=== PATIENT | female | born 1930 | race Caucasian/White ===

== ENCOUNTER → 2019-04-25 | Outpatient (CLI) | payer MEDICARE, OTHER ==
[~2019-04-25] MED LIST: ALBU90OI INH; ASCO500 PO; ASPI81CH PO; BIOTIN1 MG PO; CEFU500; CHOL10002 PO; CYAN100 PO; DIAZ5 PO; DICL25ER PO; Fluocinonide-E15 GM TP; GINKGO BILOBA120 MG; GLUCOSAMINE HCL; HYDR1TAB94 PO; IBUP600 PO; Inderal40 MG; LEVSOD50 PO; LEVSOD75 PO; LIDO5TP TOP; METCAR500 PO; MULTIVITAMIN WITH IR; NORT10 PO; Norco 5-325 Ta1 EACH PO; PRED10 PO; Robaxin500 MG PO; Sea-Omega 30 C1 EACH PO
== END ==
LOC: PLD 07:48 → LAB SHORT 07:48
DX: L57.0 Actinic keratosis (principal)
CPT/HCPCS: 88305

== ENCOUNTER → 2019-10-03 | Outpatient (CLI) | payer MEDICARE, OTHER ==
[2019-10-03 19:08] LABS: Influenza A Negative (NEGATIVE); Influenza B Negative (NEGATIVE)
== END ==
LOC: LAB SHORT 12:00 → LAB 12:00
PROVIDERS: Nurse Practitioner Family
DX: R50.9 Fever, unspecified (principal)
CPT/HCPCS: 87804

== ENCOUNTER 2019-11-27 12:53 | Emergency (ER) | payer MEDICARE, OTHER ==
[~2019-11-27] VITALS: Ht 167.6 cm; Wt 56.7 kg
[2019-11-27] MEDS ORDERED: MERIBIN5 M1 PO (13:02)
[2019-11-27] MEDS ORDERED: ASPIR 8181 MG PO (13:02)
[2019-11-27] MEDS ORDERED: ATOR20 PO (13:02)
[2019-11-27] MEDS ORDERED: LEVSOD75 PO (13:03)
[2019-11-27] MEDS ORDERED: LATA.005SO (13:03)
[2019-11-27] MEDS ORDERED: GLUC500 PO (13:03)
[2019-11-27] MEDS ORDERED: METF500 (13:04)
[2019-11-27] MEDS ORDERED: VIT1CAPS12 (13:04)
[2019-11-27] MEDS ORDERED: MIRALAX17 GM PO (13:04)
[2019-11-27] MEDS ORDERED: Inderal40 MG (13:04)
[2019-11-27] MEDS ORDERED: ACET325 (13:05)
[2019-11-27] MEDS ORDERED: ALBU90OI (13:05)
[2019-11-27] MEDS ORDERED: ONDA4ODT MM (15:14)
[2019-11-27] MEDS ORDERED: DIAZ2 PO (15:15)
== END 2019-11-27 16:00 | disposition home or self-care (01) ==
LOC: ER 12:53
DX: G45.9 Transient cerebral ischemic attack, unspecified (principal); Z51.5 Encounter for palliative care; Z66 Do not resuscitate; F32.9 Major depressive disorder, single episode, unspecified; R42 Dizziness and giddiness; Z88.5 Allergy status to narcotic agent; Z79.899 Other long term (current) drug therapy; Z79.82 Long term (current) use of aspirin; Z79.84 Long term (current) use of oral hypoglycemic drugs; I10 Essential (primary) hypertension; E03.9 Hypothyroidism, unspecified; G43.909 Migraine, unspecified, not intractable, without status migrainosus; Z87.891 Personal history of nicotine dependence
CPT/HCPCS: 93005; 93010; 96361; 96374; 96375; 99284-25; J2060; J2405; J7030

== ENCOUNTER → 2020-01-19 | Outpatient (CLI) | payer MEDICARE, OTHER ==
[~2020-01-19] MED LIST changes: +ACET325; +ALBU90OI; +ASPIR 8181 MG PO; +ATOR20 PO; +DIAZ2 PO; +GLUC500 PO; +LATA.005SO; +MERIBIN5 M1 PO; +METF500; +MIRALAX17 GM PO; +ONDA4ODT MM; +VIT1CAPS12
[2020-01-19 09:05] LABS: Hematocrit 41.5 % (33.0-51.0); Hemoglobin 13.7 g/dL (11.5-16.0); Mean Corpuscular HGB 30.8 pg (26.0-34.0); Mean Corpuscular Volume 93 fL (80-100); Mean Platelet Volume 10.7 fL (9.1-12.4); Platelet Count 249 K/mm3 (150-400); RDW Coefficient Variation 13.2 % (11.7-14.2); RDW Standard Deviation 45.1 fL (35.1-46.3); Red Blood Cell Count 4.45 M/mm3 (3.80-5.20)
[2020-01-19 09:57] LABS: Alanine Aminotransfer (ALT/SGP 17 U/L (12-78); Albumin, Blood 3.3 g/dL (3.4-5.0); Albumin/Globulin Ratio 0.8 (0.8-1.8); Alk Phos 62 U/L (50-136); Anion Gap 8 mmol/L (6-16); Aspartate Aminotrans (AST/SGOT 16 U/L (12-37); Bilirubin, Total 0.4 mg/dL (0.1-1.0); Blood Urea Nitrogen 29 mg/dL (8-24); Bun/Creatinine Ratio 29.6 (12.0-20.0); CHOL/HDL RATIO 2.6; CO2, Blood 25 mmol/L (21-32); Calcium, Blood 9.2 mg/dL (8.5-10.1); Chloride, Blood 105 mmol/L (98-108); Cholesterol 184 mg/dL (50-200); Creatinine, Blood 0.98 mg/dL (0.40-1.00); Free Thyroxine 1.27 ng/dL (0.70-1.60); Globulin, Blood 4.1 g/dL (2.2-4.0); Glomerular Filtration Rate 57 (60-); Glucose, Blood 93 mg/dL (70-99); HDL Cholesterol 71 mg/dL (>39); LDL/HDL RATIO 1.3; Low Density Lipoprotein Chol 91 mg/dL (0-110); Sodium, Blood 138 mmol/L (136-145); Total Protein, Blood 7.4 g/dL (6.4-8.2); Triglycerides 109 mg/dL (30-160); Very Low Density Lipoprot Chol 21 mg/dL (6-32)
== END ==
LOC: LAB SHORT 08:04 → LAB 08:04
PROVIDERS: Nurse Practitioner Family
DX: E03.9 Hypothyroidism, unspecified (principal); E78.5 Hyperlipidemia, unspecified
CPT/HCPCS: 80053; 80061; 84439; 84443; 85027